=== PATIENT | male | born 1970 | race Hispanic/Latino ===

== ENCOUNTER 2017-10-26 04:40 | Emergency (ER) | payer SELFPAY ==
[2017-10-26 06:39] VITALS: BP 118/79
--- NOTE | 2017-10-26 09:19 | Emergency Department Report ---
Eye Injury/Foreign Body - HPI Duration: 3 Days Eye Location: Right Severity: Moderate Eye Symptoms: Eye Pain: Yes, Blurred Vision: Yes, Eye Redness: Yes, Grinding/ Hammering Metal: No, Used Eye Protection: No, Contact Lens Use: No, Recalls Injury: Yes, Photophobia: Yes Other History: Patient is a 47-year-old male who is presenting with right eye pain. Patient states that he was scraping paint off of her house and believes one of the paint chips got in his eye. Patient has had itching and burning sensation in his been trying not to scratch however has been scratching at his as well. ED Review of Systems ROS: Stated complaint: EYE PAIN Other details as noted in HPI Comment: All other systems reviewed and negative ED Past Medical Hx - Past Medical History Previous Medical History?: No - Surgical History Past Surgical History?: No - Social History Smoking Status: Current Every Day Smoker Substance Use Type: Alcohol - Medications Home Medications: Home Medications Medication Instructions Recorded Confirmed Last Taken Type Naphazoline HCl/Pheniramine 1 drop OP TID #1 bottle 10/26/17 Unknown Rx [Naphcon-A Eye Drops] Neomy/Polymyx B/Hc Opth Susp 1 drop OD Q6HR #1 bottle 10/26/17 Unknown Rx [Cortisporin (OPTH) Susp] traMADol [Ultram] 50 mg PO Q6HR PRN #12 tablet 10/26/17 Unknown Rx Eye Injury Exam - Exam General: Vital signs noted. No distress. Alert and acting appropriately. - Visual Acuity Right Eye Exam: Right Injection (patient's right cornea has an obvious small defect without fluorescein staining), Both EOMI, Neither Abnormal Pupil, Neither Eye Foreign Body, Neither Lid Foreign Body Exam: Patient's heart and lung exams within normal limits. Patient is generally alert and oriented 3 in no acute distress ED Course Vital Signs 10/26/17 10/26/17 06:20 07:28 Temperature 97.6 F 97.6 F Pulse Rate 73 73 Respiratory 16 16 Rate Blood Pressure 118/79 118/79 O2 Sat by Pulse 99 99 Oximetry ED Medical Decision Making - Medical Decision Making Patient will be started on antibiotic drops as well as positive for the redness and irritation to be discharged home Critical care attestation.: If time is entered above; I have spent that time in minutes in the direct care of this critically ill patient, excluding procedure time. ED Disposition Clinical Impression: Cornea abrasion Qualifiers: Encounter type: initial encounter Laterality: right Qualified Code(s): S05.01XA - Injury of conjunctiva and corneal abrasion without foreign body, right eye, initial encounter Disposition: TO HOME OR SELFCARE Is pt being admited?: No Does the pt Need Aspirin: No Condition: Stable Instructions: Corneal Abrasion (ED) Prescriptions: Naphazoline HCl/Pheniramine [Naphcon-A Eye Drops] 1 drop OP TID #1 bottle Neomy/Polymyx B/Hc Opth Susp [Cortisporin (OPTH) Susp] 1 drop OD Q6HR #1 bottle traMADol [Ultram] 50 mg PO Q6HR PRN #12 tablet PRN Reason: Pain Referrals: DENIS MARISCAL MD [Staff Physician] - 3-5 Days
== END 2017-10-26 09:27 | disposition home or self-care (01) ==
LOC: ED 04:40
DX: S05.01XA Injury of conjunctiva and corneal abrasion without foreign body, right eye, initial encounter (principal); F17.200 Nicotine dependence, unspecified, uncomplicated; X58.XXXA Exposure to other specified factors, initial encounter; Y93.9 Activity, unspecified; Y92.89 Other specified places as the place of occurrence of the external cause; Y99.8 Other external cause status
CPT/HCPCS: 99282